=== PATIENT | male | born 1945 | race Caucasian/White ===

== ENCOUNTER 2017-02-16 07:22 | Emergency (ER) | payer OTHER ==
[2017-02-16 06:54] LABS: BASOPHILS 0.4 %; BASOPHILS ABSOLUTE 0.03 10/3/uL (0.0-0.16); EOSINOPHILS 3.6 %; EOSINOPHILS ABSOLUTE 0.25 10/3/uL (0.0-0.53); HEMATOCRIT 36.3 % (40.0-51.0); HEMOGLOBIN 12.5 g/dL (13.6-17.8); IMMATURE GRANULOCYTES 0.1 %; IMMATURE GRANULOCYTES ABSOLUTE 0.01 10/3/uL (0.0-0.11); LYMPHOCYTES 36.9 %; LYMPHOCYTES ABSOLUTE 2.54 10/3/uL (0.67-4.30); MEAN CORPUS HGB CONC 34.4 g/dL (32.0-36.0); MEAN CORPUSCULAR HEMOGLOB 31.4 pg (26.0-34.0); MEAN CORPUSCULAR VOLUME 91.2 fL (80-100); MONOCYTES 14.2 %; MONOCYTES ABSOLUTE 0.98 10/3/uL (0.21-1.20); NEUTROPHILS 44.8 %; NEUTROPHILS ABSOLUTE 3.07 10/3/uL (2.02-8.40); PLATELET COUNT 189 10/3/uL (150-400); RBC DISTRIBUTION WIDTH 12.2 % (12.0-16.0); RED CELL COUNT 3.98 10/6/uL (4.7-6.1); WHITE BLOOD CELLS 6.9 10/3/uL (4.5-10.5)
[2017-02-16 06:59] LABS: MANUAL DIFF NO %
[2017-02-16 07:10] LABS: PARTIAL THROMBO TIME 30.6 SEC (22.5-37.2)
[2017-02-16 07:11] LABS: PROTIME (NOT ORD) 12.7 SEC (12.0-14.5)
[2017-02-16 07:13] LABS: LACTATE 0.5 MMOL/L (0.3-2.4)
[2017-02-16 07:15] LABS: ALBUMIN 3.4 G/DL (3.5-5.0); CALCIUM, SERUM 9.4 MG/DL (8.5-10.4); CHEST PAIN PROFILE TAT 0 Hrs 25 Mins; CHLORIDE, SERUM 104 MMOL/L (96-112); CO2 (CARBON DIOXIDE) 27 MMOL/L (24-34); CREATININE 0.86 MG/DL (0.70-1.30); GFR AFRICAN AMERICAN 102 ML/MIN (>=60); GFR NON AFRICAN AMERICAN 88 ML/MIN (>=60); GLUCOSE, SERUM 104 MG/DL (60-99); POTASSIUM, SERUM 4.1 MMOL/L (3.5-5.3); SGOT(AST) 22 U/L (5-40); SGPT(ALT) 21 U/L (5-65); SODIUM, SERUM 139 MMOL/L (135-148); TOTAL BILIRUBIN 0.3 MG/DL (0-1.2); TOTAL PROTEIN 7.3 G/DL (6.0-8.5); TROPONIN I <0.02 NG/ML (<0.05)
[2017-02-16 07:17] LABS: BUN (BLOOD UREA NITROGEN) 14 MG/DL (6-23)
[2017-02-16 07:18] LABS: ALKALINE PHOSPHATASE 109 U/L (45-117); DIRECT BILIRUBIN < 0.1 MG/DL (0.0-0.4); INDIRECT BILIRUBIN(NOT ORDER) 0.2 MG/DL (0.1-0.9)
[~2017-02-16 07:22] MED LIST: ACCUNEB INH; ADVIL PO; ALBUTEROL INH; ALBUTEROL0.63 MG/3 INH; AMOXIL500 MG PO; ANDRODERM5 TOP; ASAB PO; AUG875 PO; BIST PO; CALAN SR240 MG PO; CALTRA600D PO; CARASPUDL PO; CHANTIX1 PO; CLARIT10 PO; CONSTULOSE PO; COZ50 PO; DALIRESP500 MCG; DALIRESP500 MCG PO; DOLOPHINE5 MG PO; DSS PO; DULERA 100 MCG/13 GM INH; DULERA 200 MCG/13 GM INH; DURA12 TOP; DURA25 TOP; ENULOSE PO; FENESIN IR400 MG PO; FISH OIL1200 MG PO; FLAG500TAB PO; FLECTOR1.3 % TOP; FLEX PO; FLORASTOR250 MG PO; FORTICAL200 MG/ACT NAS; FOSAMAX70 MG PO; GLYCAD PR; HALF81 PO; HUMI PO; IBU400 PO; ICY HOT16 % TOP; INDO50 PO; ISOPTIN SR240 MG PO; ISOPTINSR PO; LACTULOSE10 GM/152 OR; LEVAQUIN5T PO; LEVAQUIN750 MG PO; LIDODERM T; LORCET PO; LORT7 PO; LORTAB PO; LORTAB10; LORTAB10 PO; LYRICA75 PO; MAXIMUM D3 PO; MELA3 PO; MELATONIN1 M1 PO; MELATONIN5 M1 PO; MENTHOL TOP; METHATAB5B PO; MINERAL ICE TOP; MIRALAXPKT PO; MOBIC15 MG PO; MOMUD PO; MSCONT15 PO; NASAL SPRAY RX NAS; NEUR300 PO; NEUR600 PO; NORCO1 TA1 PO; NORCO1 TAB PO; NORV10 PO; NORV5 PO; NUTRITIONAL SUPPLEMENT PO; NYQUIL OTC PO; NYS500UDL PO; OXYCOD PO; OXYCODONE PO; OXYCON10 PO; OXYCON20 PO; P1 PO; P10; P10 PO; P20 PO; P5 PO; PCET PO; PR25 PO; PREV30 PO; PREVPAC PO; PRILOSEC40 MG PO; PROAIR HFA INH; PROBIOTIC; PROBIOTICS PO; PROTONIX PO; PROVENTSOL INH; PROVHFA INH; ROXICODONE15 MG PO; SPIRIVA; SPIRIVA INH; STOOL SOFTEN100 MG PO; SUCR PO; SYMBICORT; SYMBICORT 160/41 INH INH; SYMBICORT 80/4.1 INH INH; TESS PO; THEOPHYLLINE 400 MG; TOPAMAX25 PO; TRIDERM0.1 % TOP; ULTRAM50 PO; VANCO1P IV; VENTOLIN HFA INH; VERELAN240 MG PO; VERELANPM1 PO; Z-PAK PO; ZOFRAN4 PO; ZOFRAN8 PO; [UNRECOGNIZED DRUG - OTHER] PO; [UNRECOGNIZED DRUG - OTHER] TOP; [UNRECOGNIZED DRUG - REMARK] TOP
[2017-02-16 07:38] LABS: ASCORBIC ACID (UR NOT ORDER) NEG (NEG); BILIRUBIN, URINE NEGATIVE (NEG); ER URINALYSIS TAT 0 Hrs 08 Mins; KETONE, URINE NEGATIVE (NEG); LEUKOCYTE ESTERASE(NOT OR NEG (NEG); NITRITE (URINE) NEG (NEG); WBC (NOT ORDERED) (RFLEX) < 1 (0-5)
== END 2017-02-16 09:15 | disposition home or self-care (01) ==
LOC: ER 07:22
PROVIDERS: Emergency Medicine
DX: R10.9 Unspecified abdominal pain (principal); I95.1 Orthostatic hypotension; E78.1 Pure hyperglyceridemia; J44.9 Chronic obstructive pulmonary disease, unspecified; I10 Essential (primary) hypertension; Z88.5 Allergy status to narcotic agent; Z88.8 Allergy status to other drugs, medicaments and biological substances; Z79.899 Other long term (current) drug therapy
CPT/HCPCS: 71010; 74176; 80048; 80076; 81001; 83605; 83690; 83735; 84484; 85025; 85610; 85730; 93005; 96361; 96374; 99285; A9270-GY